=== PATIENT | male | born 1985 | race Caucasian/White ===

== ENCOUNTER 2016-11-27 21:29 | Emergency (ER) | payer BC ==
[2016-11-27 21:45] VITALS: BP 125/75; PULSE 73; RESP 16; TEMP 98.2; O2SAT 96
[2016-11-27] MEDS ORDERED: LIDOCAINE 2% JELLY 5 ML TUBE TP ONE (21:46)
[2016-11-27] MEDS ORDERED: PENICILLIN VK 500 MG TAB PO ONE (22:39)
--- NOTE | 2016-11-27 22:42 | UCPHY ---
H & P Time Seen by Provider: 11/27/16 21:44 Patient Type: New HPI/ROS: This patient sustained a facial laceration from a board that struck him in the face. He explains he was helping removing some [place] friend's house using a pry bar with the board popped up and struck his face just below the lower lip. He also has an intraoral wound is not sure if this is a through and through lip laceration or not. He reports moderate pain and moderate bleeding that slowed with direct pressure. ROS: He was not days from the incident. No headache. No dental injury. No neck pain. No numbness or tingling. No other injuries. 5 point ROS is otherwise negative. Past Medical/Surgical History: Tetanus is up-to-date is otherwise healthy. Physical Exam: Physical Exam Vital signs are normal. General: No acute distress HEENT: Atraumatic except for laceration just inferior to the vermilion border- lower lip less than 1 cm, with mild bleeding. This is not actually appear to be [id number] subcutaneous tissue though there is some separation of the skin by few mm. Intraoral exam reveals no dental trauma. There is a 1 cm abrasion to the buccal mucosa of the lower lip. This is not a full-thickness laceration. There is no mandibular tenderness. Nose is atraumatic and normal Eyes: Pupils equal and react to light. Extraocular motions are intact. No periorbital contusions. No hyphema. No conjunctival injection Lungs: No respiratory distress. Cardiac: Brisk capillary refill is intact throughout. Skin: No rash or pallor. Neuro: GCS 15. Cranial nerves 2-12 grossly intact. Constitutional: Initial Vital Signs Temperature (C) 36.8 C 11/27/16 21:41 Heart Rate 73 11/27/16 21:41 Respiratory Rate 16 11/27/16 21:41 Blood Pressure 125/75 H 11/27/16 21:41 O2 Sat (%) 96 11/27/16 21:41 O2 Delivery Mode Room Air Allergies/Adverse Reactions: No Known Allergies Allergy (Unverified 11/27/16 21:41) Home Medications: Medication Instructions Recorded Penicillin V Potassium [Penicillin 500 mg PO BID #10 tab 11/27/16 VK] MDM/Departure - MDM Procedures: The wound is less than 1 cm in length described physical exam. The wound was copiously irrigated with saline. The wound was explored for foreign bodies and none were found. The wound was prepped and draped in the normal sterile fashion. The wound was anesthetized using 2% lidocaine topical followed by 1% lidocaine mixed 50 50 with 0.5% Marcaine, 27 gauge needle-1 mL injected with good effect externally and then 1 mm injected internally to the buccal mucosa abrasion. The edges were reapproximated using 5 0 Prolene come P3 needle-2 interrupted sutures with good hemostasis and cosmesis. I also explored the intraoral abrasion with pickups and Eladia clamp to confirm that there was no full-thickness laceration & indeed, this is a superficial abrasion. The patient tolerated the procedure well. There were no complications. Medications Given: Discontinued Medications Lidocaine (Lidocaine 2% Jelly) 1 marty TP EDNOW ONE Stop: 11/27/16 21:47 Last Admin: 11/27/16 21:49 Dose: 1 marty Penicillin V Potassium (Pen Vk) 500 mg PO EDNOW ONE PRN Reason: Protocol Stop: 11/27/16 22:40 Last Admin: 11/27/16 22:42 Dose: 500 mg ED Course/Re-evaluation: Penicillin VK prophylactically for the intraoral wound. I counseled the patient regarding wound care and facial sutures. - Depart Disposition: Home, Routine, Self-Care Clinical Impression: INTRAORAL WOUND Facial laceration Qualifiers: Encounter type: initial encounter Qualified Code(s): S01.81XA - Laceration without foreign body of other part of head, initial encounter Condition: Good Instructions: Facial Laceration (ED) Additional Instructions: Diagnosis: Facial laceration 2. Intraoral abrasion Plan: Ibuprofen and Tylenol for pain as needed Keep the wound clean and dry for 2 days then clean daily with warm soapy water Soft diet for the next 5 days After food, rinse the intraoral wound with half-strength peroxide as described. Penicillin antibiotic to prevent infection Return for suture removal in 5-7 days Return sooner for redness discharge or other concerns for infection. Prescriptions: Penicillin V Potassium [Penicillin VK] 500 mg PO BID #10 tab - PQRS PQRS Measurement: NA
== END 2016-11-27 22:51 | disposition home or self-care (01) ==
LOC: CED 21:29
PROC: 0HQ1XZZ Repair Face Skin, External Approach (ICD-10-PCS; principal; 2016-11-27)
DX: S01.81XA Laceration without foreign body of other part of head, initial encounter (principal); S00.512A Abrasion of oral cavity, initial encounter; Y92.019 Unspecified place in single-family (private) house as the place of occurrence of the external cause; W20.8XXA Other cause of strike by thrown, projected or falling object, initial encounter; Y93.E9 Activity, other interior property and clothing maintenance; Y99.8 Other external cause status
CPT/HCPCS: G0463-PO